=== PATIENT | female | born 1980 | race Caucasian/White ===

== ENCOUNTER 2025-03-13 10:52 | Outpatient (CLI) | payer OTHER, SELFPAY ==
--- OUTSIDE RECORDS SUMMARY | 2025-03-13 10:40 | XMS_ITS | Clinical Summary ---
Author Organization [facility] [employer] Address [address] [place] [address] Care Team Providers Care Commercial Census Taker Name Role Phone Steff Moe APRN-IN TUBE CONVERSION TECHNICIAN Primary Care Provider Unavailable Source Comments [facility],non-owned Affiliates and Associated Physician Practices is amultiple site organization consisting of ambulatory clinics and hospital sitesin [place], [place], [place] and [place]. This disclosure is being madepursuant to the Care Everywhere program and may not contain all information available regarding this patient. Last updated 18.[facility] [employer] Allergies Active Allergy Reactions Criticality Noted Date Comments Aspirin Urticaria Medium 07/04/2017 Sulfamethoxazole W-Trimethoprim Rash Medium 06/02 Povidone Iodine Rash Medium 07/04/2017 Clindamycin Rash Medium 08/06/2023 Fentanyl Rash,Itching Medium 07/04/2017 Hydromorphone Itching 07/04/2017 Penicillins Rash Medium 06/15/2017 Medications * Be aware that medications may not be up to date on this document. Alwaysverify current medications with the patient. gabapentin (Neurontin) 100 MG capsule Take 1 (one) capsule by mouth 2 times daily Active Continuous Blood Gluc Sensor (FreeStyle Jordi 2 Sensor Systm) MISC 3 Active Probiotic Product (NextStep.io) capsuleIndicati ons:Bariatric surgery status Take 1 (one) capsule by mouth once daily 30 capsule 3 4 Active Blood Glucose Monitoring Suppl (ONE TOUCH ULTRA 2) w/Device KIT USE TO TEST BLOOD SUGARS 4 TIMES A DAY 4 Active Multiple Vitamins-Minera ls (ONE-A-DAY WOMENS PO) Take by mouth 2 times daily Active pantoprazole EC (Protonix) 40 MG tablet Take 1 (one) tablet by mouth as needed for Heartburn 30 tablet 4 Active vitamin D, ergocalciferol, (Drisdol) 1.25 MG (37289 UT) capsuleIndicati ons:Vitamin D Deficiency Take 1 (one) capsule by mouth every 7 days Reasons: Vitamin D Deficiency 4 capsule 3 4 Active Additional Information Patient not taking.Reported on 01/25/2025 Rezdiffra 80 MG TABS once daily 5 Active nystatin (Mycostatin) 592688 UNIT/GM powder Apply to affected area 2 times daily 60 g 5 Active rosuvastatin (Crestor) 20 MG tablet Take 1 (one) tablet by mouth at bedtime 5 Active Pancrelipase, Fue-Aqsb-Amrz, (ZENPEP PO) Active bisacodyl EC 5 MG tablet At 4 pm take 2 tabs with 8 oz of water and then at 8 pm take 2 tabs with 8 oz of water 4 tablet 5 Active polyethylene glycol 3350 (Miralax) 17 GM/SCOOP powder 8.3 oz bottle (238 gm). Mix with 64 oz clear liquid for colonoscopy prep 238 g 5 Active Active Problems Problem Noted Date Diagnosed Date Morbid obesity 10/03/2023 Encounters Date Type Department Care Team Description 02/08/2025 Telephone [facility] [address] [place] [address] Beti Hernandez, AIRBRUSH ARTIST-IN TUBE CONVERSION TECHNICIAN Pain Abdominal; Diarrhea 01/28/2025 Telephone [facility] [address] [place] [address] Linda Denton RN Referral 01/25/2025 2:00 PM CDT Office Visit [facility] [address] [place] [address] Beti Hernandez APRN-IN TUBE CONVERSION TECHNICIAN Diarrhea, unspecified type (Primary Dx); Lower abdominal pain; Status post colonoscopy with polypectomy; Hyperplastic polyp of sigmoid colon; Adenomatous polyp of descending colon 01/16/2025 Results Follow-Up [facility] [address] [place] [address] Jahaira Stark MD 01/15/2025 11:20 AM CDT - 01/15/2025 12:06 PM CDT Surgery [facility] [address] [place] [address] Jahaira Stark MD COLONOSCOPY WITH POLYPECTOMY 01/15/2025 11:18 AM CDT Anesthesia Event [facility] [address] [place] [address] Marlene Crisostomo MD Alli, Emily, APRN-CRNA 01/15/2025 10:03 AM CDT - 01/15/2025 12:28 PM CDT Hospital Encounter [facility] [address] [place] [address] Jahaira Stark MD Surgery General Discharge Disposition: Home or Self Care 01/15/2025 Travel 01/14/2025 Travel 12/28/2024 Results Follow-Up [facility] [address] [place] [address] Beti Hernandez APRN-CNP 12/27/2024 10:54 AM CDT - 12/27/2024 11:59 PM CDT Hospital Encounter [facility] [address] [place] [address] Beti Hernandez APRN-CNP Discharge Disposition: Home or Self Care 12/27/2024 10:00 AM CDT Office Visit [facility] [address] [place] [phone] Beti Hernandez APRN-CNP Diarrhea, unspecified type (Primary Dx); Lower abdominal pain 12/17/2024 Telephone [facility] [address] [place] [address] Jahaira Stark MD Appointment 12/14/2024 Telephone [facility] [address] [place] [phone] Beti Hernandez APRN-CNP Follow-up 12/13/2024 Telephone [facility] [address] [place] [phone] Beti Hernandez APRN-KATIA Results 12/11/2024 Results Follow-Up [facility] [address] [place] [phone] Beti Hernandez APRN-CNP from Last 3 Months Family History Medical History Relation Name Comments Cancer - Other Father Diabetes - Type 2 Father Cancer - Colon Maternal Grandmother Cancer - Other Maternal Grandmother CAD (Coronary Artery Disease) Mother Diabetes; unknown type Mother Heart Failure Mother Multiple Sclerosis Mother Asthma Neg Hx Autoimmune Disease Neg Hx Bipolar Disorder Neg Hx Cancer - Ovarian Neg Hx Cancer - Pancreatic Neg Hx Cancer - Prostate Neg Hx Depression Neg Hx Eczema Neg Hx Hypertension Neg Hx Migraine Neg Hx Osteoporosis Neg Hx Seizures Neg Hx Sudd. <30 Neg Hx Thyroid Disease Neg Hx Ulcerative Colitis Neg Hx Relation Name Status Comments Father Maternal Grandfather Maternal Grandmother Mother Alive Paternal Grandfather Paternal Grandmother Sister Alive Social History Tobacco Use Types Packs/Day Years Used Date Smoking Tobacco: Former Cigarettes Q uit: 09/06/2017 Smokeless Tobacco: Never Tobacco Cessation:Counseling Given: Not Answered Comments:Quit 23 yrs agp Alcohol Use Standard Drinks/Week Comments Not Currently 0 (1 standard drink = 0.6 oz pur e alcohol) occasional AUDIT-C Answer Date Recorded Q1: How often do you have a drink containing alc ohol? Monthly or less 01/15/2025 Q2: How many drinks containi ng alcohol do you have on a typical day when you are drinking? 1 or 2 01/15/2025 Q3: How often do you have si x or more drinks on one occasion? Less than monthly 01/15/2025 Overall Financial Resource Strain (CARDIA) Ute r Date Recorded How hard is it for you to pa y for the very basics like food, housing, medical care, and heating? Patient declined 10/05/2023 PHQ-2 Answer Date Recorded Patient Health Questionnaire-2 Score 0 01/25/2025 [facility] - Occupational Stress Questionnaire Answer Date Recorded Do you feel stress - tense, restless, nervous, or anxious, or unable to sleep at night because your mind is troubled all the time - these days? Patient declined 10/05/2023 Hunger Vital Sign Answer Date Recorded Within the past 12 months, y ou worried that your food would run out before you got the money to buy more. Patient declined Within the past 12 months, t he food you bought just didn't last and you didn't have money to get more. Patient declined 12/2023 PRAPARE - Transportation Answer Date Re corded In the past 12 months, has l ack of transportation kept you from medical appointments or from getting medications? Patient declined 10/05/2023 In the past 12 months, has l ack of transportation kept you from meetings, work, or from getting things needed for daily living? Patient declined 10/05/2023 Housing Stability Vital Sign Answer Bret e Recorded In the last 12 months, was t here a time when you were not able to pay the mortgage or rent on time? Patient declined 10/05/19 24 In the last 12 months, how many places have you lived? 1 10/05/2023 In the last 12 months, was t here a time when you did not have a steady place to sleep or slept in a penitentiary (including now)? Patient declined 10/05/2023 Comments No Sex and Gender Information Value Date Recorded Sex Assigned at Not on file Legal Sex Female 12:23 PM MACHINE SHOP SPECIALIST Gender Identity Not on file Sexual Orientation Not on file Last Filed Vital Signs Vital Sign Reading Time Taken Comments Blood Pressure 102/64 01/25/2025 2:00 PM CDT Pulse 78 01/25/2025 2:00 PM CDT Temperature 36.4 C (97.5 F) 01/25/2025 2:00 PM CDT Respiratory Rate 18 01/25/2025 2:00 PM CDT Oxygen Saturation 99% 01/25/2025 2:00 PM CDT Inhaled Oxygen Concentration 100% 03/14/2018 9 :50 AM CDT Weight 82.3 kg (181 lb 8 oz) 01/25/2025 2:00 PM CDT Height 165.1 cm (5' 5) 01/25/2025 2:00 PM CDT Body Mass Index 30.2 01/25/2025 2:00 PM CDT Plan of Treatment Upcoming Encounters Date Type Department Care Team (Late st Contact Info) Description 05/08/2025 11:00 AM CDT Office Visit [facility] [address] [place] [phone] Beti Hernandez, AIRBRUSH ARTIST-IN TUBE CONVERSION TECHNICIAN [address], [place] [phone] 05/08/2025 11:30 AM CDT Office Visit [facility] [address] [place] [address] Health Maintenance Due Date Last Done Comments COLOGUARD (AGES 45-75) - COLON CA SCREENING 1978 CT COLONOGRAPHY - COLON CA SCREENING 1978 FIT - COLON CA SCREENING 1978 FLEX SIG - COLON CA SCREENING 1978 HIV SCREENING 1993 HEPATITIS C SCREENING 08/02/1996 DTAP/TDAP/TD VACCINES (1 - Tdap) 1997 HEPATITIS B VACCINE (1 of 3 - 19+ 3-dose series) 1997 PNEUMOCOCCAL VACCINE (1 of 2 - PCV) 1997 COVID-19 VACCINE (1 - season) 2024 INFLUENZA VACCINE (#1) 2025 MAMMOGRAM 04/24/2026 04/24/2024, 04/02, 12/29/2022, Additional history exists SCREENING FOR DIABETES 11/17/2027 , 11/16/2024, 10/15/2024, Additional history exists ZOSTER VACCINE (1 of 2) 2028 COLON MONITORING 01/15/2030 01/15/2025, , 07/06/2022, Additional history exists Colorectal Cancer Screening 01/15/2030 COLONOSCOPY - COLON CA SCREENING 01/15/2035 01/15/2025, 07/06/2022, 07/06/2022 DEPRESSION SCREENING Completed 10/03/2024, 09/22/19 24 HIB VACCINE Aged Out No longer eligi ble based on patient's age to complete this topic HPV VACCINE Aged Out No longer eligi ble based on patient's age to complete this topic MENINGOCOCCAL (Group B) VACCINE SHARED DECISION-MAKING Aged Out No longer eligible based on patient's age to complete this topic MENINGOCOCCAL GROUPS A/C/Y/W VACCINE Aged Out No longer eligible based on patient's age to complete this topic Medical Devices Implanted Type Area Ladder Operator Device Identifier Shelf Expiration Date Model / Serial / Lot Kit Tissue Clsr Duo Tssl 1 Prefl Syr Implanted:Qty : 1 on 10/03/2023 by Jahaira Stark MD at [facility] N/A: Stomach [employer] 04/30/2025 [id number] / / [id number] Procedures Procedure Name Priority Date/Time Associated Diagnosis Comments CARDIAC RHYTHM STRIP ORDER 01/16/2025 1:55 PM CDT GROSS + MICRO EXAM (ILL) Routine 01/15/2025 11:36 AM CDT Lower abdominal pain Diarrhea, unspecified type [place] COLONOSCOPY, DIAGNOSTIC 01/15/2025 11:13 AM CDT Lower abdominal pain Diarrhea, unspecified type Special Needs ARRIVAL TIME:1000 VITAMIN D 25-HYDROXY Routine 12/27/2024 10:58 AM CDT Vitamin D deficiency HEMOGLOBIN A1C Routine 10/03/2024 2:48 PM MACHINE SHOP SPECIALIST Class 1 obesity due to excess calories with serious comorbidity and body mass index (BMI) of 31.0 to 31.9 in adult S/P laparoscopic sleeve gastrectomy Type 2 diabetes mellitus without complication, unspecified whether burn crew member insulin use Bariatric surgery status Abdominal pannus Pre-op evaluation from Last 3 Months or Most Recently Relevant to Health Maintenance Results * CARDIAC RHYTHM STRIP ORDER (01/16/2025 1:55 PM CDT) Narrative 01/16/2025 1:55 PM CDT Ordered by an unspecified provider. us Scanned Document CARDIAC SERVICES ORDERABLES Fin al Result * GROSS + MICRO EXAM (ILL) (01/15/2025 11:36 AM CDT) Case Report Surgical Pathology Report Case: [id number] Authorizing Provider: Jahaira Stark MD Collected: 01/15/2025 11:36 AM Ordering Location: [facility] Received: 01/15/2025 02:17 PM [facility] Pathologist: Toño Garibay MD Specimens: A) - Polyp Descending, Descending Colon Polyp B) - Polyp Sigmoid, Sigmoid Colon Polyp 01/16/2025 8:54 AM CDT [facility] Final Diagnosis A. Descending colon polyp, biopsy: - Tubular adenoma - Negative for high-grade dysplasia B. Sigmoid colon polyp, biopsy: - Hyperplastic polyp 01/16/2025 8:54 AM T [facility] at 0854 CDT Microscopic Description and Comment Microscopic examination is performed and substantiates the above diagnosis. 01/16/2025 8:54 AM CDT [facility] Clinical History Lower abdominal pain. Diarrhea. 2-3 mm colon polyps on colonoscopy. 01/16/2025 8:54 AM CDT [facility] Gross Description A. The requisition and specimen(s) are identified with the patient's name (Lexis Alberts), MRN, and . Received in formalin labeled descending colon polyp, is a ness-pink soft tissue fragment, 0.4 cm in greatest dimension. The specimen is submitted in toto in cassette A1. B. Received in formalin labeled s igmoid colon polyp , are 2 ness-pink soft tissue fragments, 0.3 cm each in greatest dimension. The specimen is submitted in toto in cassette B1. AW 01/16/2025 8:54 AM CDT [facility] Pathologist Location at [facility] 01/16/2025 8:54 AM CDT [facility] Disclaimer The performance characteristics of all immunohistochemical and indirect immunofluorescence stains (if any) cited in this report were determined by the Histopathology Laboratory of [facility]. Some of these tests were developed by our own laboratory and have not been cleared or approved by the US Food and Drug Administration. The FDA does not require this test to go through premarket FDA review. These tests are used for clinical purposes. They should not be regarded as investigational or for research. This laboratory is certified under the Clinical Laboratory Improvement Amendments (CLIA) as qualified to perform high complexity clinical laboratory testing. H&E slides and special stains prepared at [facility], [place]. [address] (CLIA# [id number]) unless otherwise specified. This case was interpreted by the [facility] Department of Pathology. When applicable, select reference laboratory testing is performed at the [facility], [address] [place] [id number]. 01/16/2025 8:54 AM CDT [facility] Embedded Images 01/16/2025 8:54 AM CDT [facility] Pathology/Cytology POLYP / Unknown 2024 11:36 AM CDT 01/15/2025 2:17 PM CDT Comment:Pre-op diagnosis: Lower abdominal pain [R10.30] Diarrhea, unspecified type [R19.7] Miscellaneous samples (specimen) POLYP OF SIGMOID COLON / Unknown 01/15/2025 11:39 AM CDT 01/15/2025 2:17 PM CDT Comment:Pre-op diagnosis: Lower abdominal pain [R10.30] Diarrhea, unspecified type [R19.7] us Jahaira Stark MD LAB - PATHOLOGY/CYTOLOGY ORDERABLES Final Result Performing Organization Address [facility]/State/[facility] de Phone Number [facility] [address] * VITAMIN D 25-HYDROXY (12/27/2024 10:58 AM CDT) Vitamin D, 25 Hydroxy 35.5 30 - 80 ng/mL 12/27/2024 11:58 AM CDT [facility] Blood BLOOD SPECIMEN / Unknown Lab Venipuncture / Unknown 12/27/2024 10:58 AM CDT 12/27/2024 11:17 AM CDT Narrative [facility] - 12/27/2024 11:58 AM CDT Reference Values: The recommendation for 25-Hydroxy Vitamin D clinical decision points are as follows: Deficient < 20.0 ng/mL Insufficient 20.0-29.9 ng/mL Sufficient 30.0-100.0 ng/mL Potential Toxicity >100 ng/mL Reference: The Endocrine Society Clinical Practice Guidelines. 2011 If the 25-Hydroxy Vitamin D results are inconsistent with clinical evidence, it is recommended that follow-up testing using a method such as LC-MS/MS be performed to confirm the result. Beti Hernandez [facility] - CHEMISTRY ORDERABL ES Final Result [facility] [address] * HEMOGLOBIN A1C (10/03/2024 2:48 PM MACHINE SHOP SPECIALIST) [facility] Hemoglobin A1c 5.5 4.2 - 5.6 % 10/03/2024 3:13 PM MACHINE SHOP SPECIALIST [facility] Estimated Average Glucose 111 mg/dL 10/03/2024 3:13 PM MACHINE SHOP SPECIALIST [facility] Blood BLOOD SPECIMEN WITH EDTA / Unknown Lab Venipuncture / Unknown 10/03/2024 2:48 PM MACHINE SHOP SPECIALIST 10/03/2024 2:59 PM MACHINE SHOP SPECIALIST Narrative [facility] - 10/03/2024 3:13 PM MACHINE SHOP SPECIALIST HbA1c Interpretation: Normal: < 5.7% Pre-diabetes: 5.7-6.4% Diabetes: Equal to or greater than 6.5% Test results diagnostic of diabetes should be repeated for confirmation. Treatment target values recommended by ADA and other clinical organizations should be used to evaluate metabolic control in patients. This test should not replace glucose testing for patients with Type 1 diabetes, pediatric patients, or women. Falsely low HbA1c results may be observed in patients with clinical conditions that shorten erythrocyte life span or decrease mean erythrocyte age such as the presence of unstable hemoglobin variants, elevated hemoglobin F level or other causes of hemolytic anemia. HbA1c may not accurately reflect glycemic control when clinical conditions that affect erythrocyte survival are present. Severe Iron deficiency anemia may yield falsely high results. Hemoglobin A1c assay should not be used to diagnose or monitor diabetes in patients with malignancy, recent blood transfusion, chronic kidney or liver disease. This method may yield falsely low results when hemoglobin (HbF) exceeds 5% in the specimen. The Pierre Alinity assay for the measurement of HbA1c is a National Glycohemoglobin Standardization Program (NGSP) certified method. Beti Hernandez AIRBRUSH ARTIST-IN TUBE CONVERSION TECHNICIAN LAB - CHEMISTRY ORDERABL ES Final Result [facility] [address] from Last 3 Months or Most Recently Relevant to Health Maintenance Insurance * Guarantor: E-SCREEN,SOIL Account Type Relation to Patient Date of Phone Billing Address Company Employer [employer] [address] [facility] Advance Directives Documents on File Type Date Recorded Patient Digital Campaign Manager Expl anation Adv Directive/Living Will/POA 06/15/2017 medication asst form signed to particapte sent to scan * Full Code (Latest Code Status on File) Date Activated Date Inactivated Comments 10/03/2023 11:44 AM 10/05/2023 12:52 PM * Full Code Date Activated Date Inactivated Comments 03/14/2018 8:52 AM 03/14/2018 3:29 PM Care Teams Commercial Census Taker Relationship Specialty Start Date End Date Steff Moe APRN-KATIA PCP - General Nurse Practitioner 04/14/23
[2025-03-13 11:23] LABS: Hematocrit 42.5 % (37.0-47.0); Hemoglobin 14.1 g/dL (12.0-15.0); Mean Corpuscular HGB Conc 33.2 g/dl (32-36); Mean Corpuscular Hemoglobin 29.6 pg (26-34); Mean Corpuscular Volume 89.3 fl (80-100); Platelet Count Result 272 k/mm3 (150-375); Red Blood Count 4.76 M/mm3 (4.2-5.4); White Blood Count 8.0 K/mm3 (4.5-10.0)
[2025-03-13 11:49] LABS: Alanine Aminotransferase 25 U/L (6-35); Albumin Level 4.6 g/dL (3.5-5.1); Alkaline Phosphatase 71 U/L (38-126); Anion Gap 8 mmol/L (4-12); Aspartate Amino Transferase 26 U/L (14-36); Bilirubin,Total 2.1 mg/dL (0.2-1.3); Blood Urea Nitrogen 14 mg/dL (7-17); Calcium 9.5 mg/dL (8.4-10.2); Carbon Dioxide 26 mmol/L (22-30); Chloride 103 mmol/L (98-107); Estimated Glomerular Filt Rate > 60; Glucose 128 mg/dL (65-110); Lipase 39 U/L (23-300); Potassium 3.9 mmol/L (3.4-5.0); Sodium 137 mmol/L (137-145); Total Protein 7.9 g/dL (6.3-8.2)
[2025-03-13 12:03] LABS: CRP 1.3 mg/dL (<1.0)
[2025-03-13 12:26] LABS: Thyroid Stimulating Hormone 0.671 uIU/mL (0.465-4.680)
[2025-03-13 12:34] LABS: Toxigenic C. Diff NEGATIVE (NEGATIVE)
[2025-03-14 14:08] LABS: Fats, Neutral Normal (.); Fats, Total Normal (.)
[2025-03-14 15:09] LABS: Deamidated Gliadin Abs, IgA 6 units (0-19); Deamidated Gliadin Abs, IgG 4 units (0-19); Immunoglobulin A, Qn 220 mg/dL (87-352)
[2025-03-15 14:08] LABS: Pancreatic Elastase, Fecal 12 (>200)
[2025-03-16 12:08] LABS: Calprotectin, Fecal 54 ug/g (0-120)
== END 2025-03-13 10:53 | disposition home or self-care (01) ==
PROVIDERS: Visit Provider Nurse Practitioner Family
DX: R19.7 Diarrhea, unspecified (principal)
CPT/HCPCS: 36415; 80053; 82653; 82705; 82784; 83690; 83993; 84443; 85027; 85652; 86140; 86231; 86258; 87045; 87046; 87177; 87427; 87493